=== PATIENT | female | born 1960 | race Caucasian/White ===

== ENCOUNTER 2025-06-08 09:07 | Emergency (ER) | payer MEDICAID ==
[~2025-06-08] VITALS: Ht 157.5 cm; Wt 57.3 kg
[~2025-06-08 09:07] MED LIST: ALBU17AE27 IH
[2025-06-08 09:14] VITALS: TEMP 98
[2025-06-08] MEDS: KETOROLAC TROMETHAMINE 60 MG/2 ML VIAL IM ONE (09:55)
[2025-06-08 10:00] LABS: PLATELET COUNT (AUTO) 324 K/uL (150-450); RED BLOOD CELL COUNT(AUTO) 5.07 MIL/uL (4.00-5.20); RED CELL DISTRIBUTION WIDTH 14.8 % (11.5-14.5); WHITE BLOOD COUNT (AUTO) 10.4 K/uL (4.5-11.0)
[2025-06-08 10:03] LABS: CALCIUM, TOTAL 8.8 mg/dL (8.8-10.5); CREATININE 0.80 mg/dL (0.60-1.30); GLOMERULAR FILTR. RATE CALC > 60 mL/min (>60); GLUCOSE,RANDOM 114 mg/dL (70-110); SODIUM SERUM 140 mmol/L (136-145); UREA NITROGEN, BLOOD 12 mg/dL (7-18)
[2025-06-08] MEDS: OxyCODONE HCL/ACETAMINOPHEN 5-325 MG TABLET PO ONE (10:47)
[2025-06-08] MEDS ORDERED: PERCT PO (12:37)
[2025-06-08 12:58] VITALS: BP 144/94; PULSE 76; RESP 18; O2SAT 99
== END 2025-06-08 13:15 | disposition home or self-care (01) ==
LOC: EMS 09:07
DX: S52.511A Displaced fracture of right radial styloid process, initial encounter for closed fracture (principal); I50.9 Heart failure, unspecified; F17.210 Nicotine dependence, cigarettes, uncomplicated; Z79.899 Other long term (current) drug therapy; W10.9XXA Fall (on) (from) unspecified stairs and steps, initial encounter; Y93.89 Activity, other specified; Y92.009 Unspecified place in unspecified non-institutional (private) residence as the place of occurrence of the external cause; Y99.8 Other external cause status
CPT/HCPCS: 99284; 80048; 85025; 36415; 73110; 29125; 96372; J1885; G0480